=== PATIENT | female | born 1965 | race Caucasian/White ===

== ENCOUNTER 2017-10-30 00:12 | Emergency (ER) | payer OTHER ==
[~2017-10-30] VITALS: Ht 170.2 cm; Wt 119.5 kg
[2017-10-30] MEDS ORDERED: BACTRIM,SEPT1 TABLET PO (01:23)
[2017-10-30] MEDS ORDERED: CORTIZONE-10 PL57 GM TP (01:23)
[2017-10-30 01:47] VITALS: BP 128/98
== END 2017-10-30 01:48 | disposition home or self-care (01) ==
LOC: EME 00:12
DX: L08.9 Local infection of the skin and subcutaneous tissue, unspecified (principal); L30.8 Other specified dermatitis
CPT/HCPCS: 99281; 99283